=== PATIENT | female | born 1995 | race African-American/Black ===

== ENCOUNTER 2025-03-11 21:57 | Emergency (ER) | payer BC, SELFPAY ==
--- NOTE | ~2025-03-11 | XR_ITS ---
XR elbow LT min 3V 03/11/2025 22:38 INDICATION: Left elbow pain PROCEDURE: 3 views left elbow COMPARISON: No prior studies for comparison. FINDINGS: Fracture, dislocation or subluxation is not identified. The soft tissues appear within normal limits. No foreign bodies are identified. IMPRESSION: 1: NO ACUTE BONE OR JOINT ABNORMALITY IDENTIFIED. Reviewed, dictated and finalized at location O.
[2025-03-11 22:02] VITALS: BP 159/99; PULSE 68; RESP 20; TEMP 36.7; O2SAT 100
--- NOTE | 2025-03-11 22:25 | ED.UPPEXIN ---
HPI - Extremity Injury (Upper) General Chief Complaint: Extremity Injury, Upper Stated Complaint: arm pain Time Seen by Provider: 03/11/25 22:11 History of Present Illness HPI narrative: 29-year-old female presents to the emergency department for left elbow pain for the past week, worsening over the past day. 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 She is reporting pain over the radial head. She denies injury neck, shoulder, wrist or hand. Denies possibility of . Related Data Allergies Allergy/AdvReac Type Severity Reaction Status Date / Time mushroom Allergy Intermediate Swelling Verified 03/11/25 22:12 of Lip/Tongue/Throat pomegranate Allergy Intermediate ITCHING Verified 03/11/25 22:12 Review of Systems Review of Systems: All systems reviewed & are unremarkable except as noted in HPI and below Exam Narrative: GENERAL: Well-appearing, well-nourished, and in no acute distress. HEAD: Normocephalic, atraumatic. EYES: EOMI. ENT: Nares clear, no rhinorrhea or epistaxis. Mucous membranes moist. NECK: Supple. CHEST: Clear to auscultation. No respiratory distress. HEART: Regular rate and rhythm. No murmur heard. Normal peripheral pulses. EXTREMITIES: LUE: Tenderness to the radial head. Remainder of extremity exam is unremarkable and nontender. No obvious deformity, erythema, warmth or edema. Patient has full range of motion of elbow with worsening pain with full flexion and supination. Radial pulses 2+. Sensation intact. Radial, median and ulnar nerves are intact. No warmth or erythema SKIN: Warm, dry, no rash. NEURO: No focal deficits. Alert and oriented x3 Course Vital Signs Vital signs: Vital Signs Temperature 98.1 F 03/11/25 22:02 Pulse Rate 68 03/11/25 22:02 Respiratory Rate 20 03/11/25 22:02 Blood Pressure 159/99 H 03/11/25 22:02 Pulse Oximetry 100 03/11/25 22:02 Oxygen Delivery Room Air 03/11/25 22:02 Temperature 98.1 F 03/11/25 22:02 Pulse Rate 68 03/11/25 22:02 Respiratory Rate 20 03/11/25 22:02 Blood Pressure 159/99 H 03/11/25 22:02 Pulse Oximetry 100 03/11/25 22:02 Oxygen Delivery Room Air 03/11/25 22:02 MDM - Extremity Injury (Upper) MDM Narrative Medical decision making narrative: 29-year-old female presents emergency department for atraumatic left elbow pain. 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 Triage vitals with hypertension, otherwise unremarkable. Exam is significant for the above. Patient is neurovascularly intact. X-ray of the elbow shows no acute bone or joint abnormality. Patient updated on results. She was given ibuprofen and placed in a arm sling provided a couple days off work to rest the joint. Will provide a course of ibuprofen. Encouraged rice and follow-up with PCP. Discussed strict ED return precautions. Patient is agreeable to plan verbalized understanding. Discharged in stable condition. Discharge Plan Discharge Clinical Impression: Elbow pain, left Patient Disposition: Home Condition: Stable Instructions: Antibiotic Form, Elbow Strain (ED) Additional Instructions: Please rest, ice, elevate your elbow. Take the ibuprofen as prescribed. Follow-up closely with your PCP. Return to the emergency department if you develop any new or worsening symptoms. Patient Language: Yoruba Prescriptions: New ibuprofen 800 mg tablet 800 mg PO TID PRN (Reason: pain) Qty: 20 0RF Follow-up/Referrals: PHYSICIAN,KENNEL WORKER [Primary Care Provider, Internal Medicine]
[2025-03-11] MEDS: IBUPROFEN 400 MG TABLET 800 MG PO (22:32)
== END 2025-03-11 23:01 | disposition home or self-care (01) ==
PROVIDERS: Emergency Provider Physician Assistant
DX: M25.522 Pain in left elbow (principal)
CPT/HCPCS: 73080; 99283; A4565; A9270